=== PATIENT | female | born 1965 | race Asian ===

== ENCOUNTER 2023-06-16 08:20 | Emergency (ER) | payer OTHER, SELFPAY ==
[2023-06-16 08:32] VITALS: BP 146/98; PULSE 87; RESP 16; TEMP 36.6; O2SAT 95; BMI 37.8
--- NOTE | 2023-06-16 09:45 | ED.GENADULT ---
HPI - General Adult General Date Seen: 06/16/23 Chief complaint: Skin/Abscess/Foreign Body Stated complaint: thinks she has shingles Time Seen by Provider: 06/16/23 08:24 History of Present Illness HPI narrative: This is a very pleasant 57-year-old female with a past medical history including hypertension, type 2 diabetes, previous stroke, who presents to the ER today with concern for shingles affecting her right upper back and right arm. She has actually had symptoms of pain radiating from her right neck and trapezius muscle down the right posterior deltoid muscle into her right arm that began about 5 days ago, last . Pain subsequently began to rate all the way down to her right pinky finger over the weekend. A couple of days ago she also developed a vesicular rash affecting her right upper back, medial to the scapula and then on the posterior aspect of her right deltoid muscle and now on her right ulnar forearm. She has not had any fever. No associated neck stiffness. No headache today. She does recall that she had had some mild headaches a week or 2 ago and wondered if that was a prodrome of her illness. She had been doing a lot of lifting and carrying things lately. She initially attributed her arm pain to carrying objects that were too heavy. No other rashes or shingles. Her diabetes is generally well controlled. No other immunosuppression. Related Data Home Medications Medication Instructions Recorded Confirmed glipizide 10 mg tablet 10 mg PO DAILY 06/16/23 06/16/23 losartan 50 mg tablet (Cozaar) 50 mg PO DAILY 06/16/23 06/16/23 pioglitazone 30 mg tablet (Actos) 30 mg PO DAILY 06/16/23 06/16/23 sertraline 200 mg capsule 200 mg PO DAILY 06/16/23 06/16/23 Previous Rx's Medication Instructions Recorded hydrocodone 5 mg-acetaminophen 325 1 tab PO Q6H PRN pain #10 tabs 06/16/23 mg tablet valacyclovir 1 gram tablet 1,000 mg PO TID #21 tabs 06/16/23 (Valtrex) Allergies Allergy/AdvReac Type Severity Reaction Status Date / Time house dust Allergy Intermediate Congested Verified 06/16/23 08:31 Latex, Natural Rubber Allergy Intermediate Rash Verified 06/16/23 08:31 mold Allergy Intermediate Congested Verified 09/19/23 08:31 pencillin Allergy Intermediate Rash Uncoded 06/16/23 08:31 PFSH FORMERLY [facility], 1928–1983 Social History Smoking Status: Never smoker How often do you have a drink containing alcohol: never AUDIT-C Alcohol total score: 0 Non-prescribed substance use: denies use service: No Exam Narrative: Exam Narrative: Constitutional: Appears well-developed and well-nourished. Alert. Conversant. Non toxic. Subtle facial droop and speech slurring which is chronic from her previous stroke. HENT: Head: Atraumatic. Nose: Nose normal. Mouth/Throat: Oral mucosa is clear and moist. no trismus. Pharynx normal. Tonsils symmetric. No tonsillar enlargement, erythema, or exudate. Eyes: Conjunctivae normal. EOM normal. Pupils equal, round, and reactive to light. No scleral icterus. Neck: Normal range of motion. Neck supple. No tracheal deviation present. Cardiovascular: Normal rate, regular rhythm. No gallop. No friction rub. No murmur heard. Pulmonary/Chest: Effort normal. No stridor. No respiratory distress. No wheezes. No rales. No rhonchi Musculoskeletal: RUE: Normal range of motion. No tenderness. No deformity LUE: Normal range of motion. No tenderness. No deformity RLE: Normal range of motion. No edema. No tenderness. No deformity LLE: Normal range of motion. No edema. No tenderness. No deformity Lymph: No cervical adenopathy. Neurological: Alert and oriented to person, place, and time. Normal strength. CN II-VII intact. No sensory deficit. GCS eye subscore is 4. GCS verbal subscore is 5. GCS motor subscore is 6. Normal coordination Skin: She has a vesicular rash with a small crop of vesicles on her right posterior upper back and a few small crop of vesicles on the posterior aspect of her right upper arm including the posterior deltoid/proximal triceps and the ulnar border of her forearm. These are highly suspicious/pathognomonic for shingles. No signs of bacterial superinfection. Otherwise, Skin is warm and dry. No rash noted. No pallor. Normal capillary refill. Psychiatric: Normal mood. Normal affect. Const: Vital Signs, click to edit/add: Vital Signs - 24 hr 06/16/23 08:32 Temperature 97.9 F Pulse Rate [Right Pulse Oximeter] 87 Respiratory Rate 16 Blood Pressure [Ri ght Upper Arm] 146/98 H Pulse Oximetry 95 Oxygen Delivery Me thod Room Air Course Vital Signs Vital signs: Initial Vital Signs Temperature 97.9 F 06/16/23 08:32 Temperature Source Temporal Artery Scan 06/16/23 08:32 Pulse Rate 87 06/16/23 08:32 Pulse Rhythm Regular 06/16/23 08:32 Respiratory Rate 16 06/16/23 08:32 Blood Pressure 146/98 H 06/16/23 08:32 Blood Pressure Mean 114 H 06/16/23 08:32 Blood Pressure Position Sitting 06/16/23 08:32 Pulse Oximetry 95 06/16/23 08:32 Oxygen Delivery Method Room Air 06/16/23 08:32 Vital Signs Temperature 97.9 F 06/16/23 08:32 Pulse Rate 87 06/16/23 08:32 Respiratory Rate 16 06/16/23 08:32 Blood Pressure 146/98 H 06/16/23 08:32 Pulse Oximetry 95 06/16/23 08:32 Oxygen Delivery Method Room Air 06/16/23 08:32 Temperature 97.9 F 06/16/23 08:32 Pulse Rate 87 06/16/23 08:32 Respiratory Rate 16 06/16/23 08:32 Blood Pressure 146/98 H 06/16/23 08:32 Pulse Oximetry 95 06/16/23 08:32 Oxygen Delivery Method Room Air 06/16/23 08:32 Medical Decision Making MDM Narrative Medical decision making narrative: This patient presents for evaluation of pain and rash on her right posterior upper back/right shoulder/right arm. This is consistent clinically with herpes zoster. Pain actually began about 5 days ago but rash started a couple of days ago. Discussed with patient that there may be less benefit starting antivirals at this time, however will start valacyclovir for this and pain medicine as noted above. No signs at this point of disseminated zoster nor V1/eye involvement. Patient is diabetic but not immunocompromised and I see no signs of systemic illness that might have lead to this. I don't think lab work to look for things like HIV or leukemia is indicated. See primary care doctor in follow up for recheck and refill of pain medicine if needed. Prescription for [place] provided. Opiate precautions reviewed. Discussed potential for developing post herpetic neuralgia. Discussed Need for follow-up. Discharge Plan Discharge Clinical Impression: Shingles Patient Disposition: Home, Self-Care Condition: Stable Instructions: Bri (ED) Additional Instructions: As we discussed, please come back to the ER or see your doctor immediately if you have any worsening symptoms such as new rashes, high fever, worsening pain, rate severe headache, blurry vision, or if you have any concerns. Use caution with the pain killer because it can cause side effects such as drowsiness, constipation, and can cause addiction. Do not drive or operate machinery while taking the pain killer. Please follow-up with your doctor within 7 days. Prescriptions: New hydrocodone-acetaminophen 5-325 mg tablet 1 tab PO Q6H PRN (Reason: pain) Qty: 10 0RF valacyclovir [Valtrex] 1 gram tablet 1,000 mg PO TID Qty: 21 0RF No Action sertraline 200 mg capsule 200 mg PO DAILY pioglitazone [Actos] 30 mg tablet 30 mg PO DAILY glipizide 10 mg tablet 10 mg PO DAILY losartan [Cozaar] 50 mg tablet 50 mg PO DAILY Stand Alone Forms: [employer] Info Instructions
== END 2023-06-16 09:40 | disposition home or self-care (01) ==
LOC: ED 09:48
PROVIDERS: Emergency Provider Emergency Medicine
DX: B02.9 Zoster without complications (principal)
CPT/HCPCS: 99283